=== PATIENT | male | born 1975 ===

== ENCOUNTER 2020-09-14 08:21 | Day surgery (SDC) | payer BC ==
[2020-09-12 13:20] VITALS: BMI 41.0
[~2020-09-14 08:21] MED LIST: LACTATED RINGERS 1,000 ML IV SCH; LIDOCAINE 1% (10MG/ML) FOR IV START INTRADERMA PRN
[2020-09-14 08:56] VITALS: TEMP 98
[2020-09-14] MEDS ORDERED: LIDOCAINE 1% INJ 10MG/ML (20 ML MDV) ONE (09:41)
[2020-09-14] MEDS ORDERED: PROPOFOL 10 MG/ML 20 ML VIAL IV ONE (09:41)
[2020-09-14 10:27] VITALS: PULSE 64
--- NOTE | 2020-09-14 10:28 | P.PCN ---
Date of Procedure: 09/14/20 Description of Procedure: Brief History: Patient is a 45-year-old male presenting for outpatient EGD and colonoscopy for evaluation of anorexia with hemorrhage of the anus and rectum. Patient has a history of diverticular disease. Still reporting left lower quadrant discomfort with occasional pain. He reports that appetite has been down over the past few weeks. Procedure performed: Esophagogastroduodenoscopy with biopsy Colonoscopy with polypectomy Estimated blood loss: Minimal. Preoperative diagnosis: Anorexia, hemorrhage of the anus and rectum, abdominal pain Anesthesia: MAC Procedure: After informed consent was obtained from the patient was brought into the endoscopy unit and IV sedation was administered by anesthesia under continuous monitoring. Initially upper endoscopy was done. The Olympus GF 190 video endoscope was inserted into the mouth and esophagus intubated without any difficulty and was gradually advanced into the stomach and duodenum and carefully examined. The bulb and second part of the duodenum appeared normal., With biopsies taken The scope was then withdrawn into the stomach adequately insufflated with air and upon careful examination the antrum and body, cardia and fundus appeared win, except for some mild scattered erythema in the antrum and body suggestive of mild gastritis with biopsies taken l. The scope was then withdrawn into the esophagus. The GE junction was located at 40 cm to the incisor, and biopsied s. It appeared regular with no erythema erosions or ulcerations. Rest of the esophagus appeared normal. Patient tolerated the procedure well. At this time the patient continued to remain sedation. Initial digital rectal examination was normal. Olympus CF 190 video colonoscope was then inserted into the rectum and gradually advanced to the cecum without any difficulty. Careful examination was performed as the scope was gradually being withdrawn. The prep was excellent. The cecum, ascending colon, transverse colon, descending colon, sigmoid colon and rectum appeared normal. Retroflexion was performed in the rectum and no lesions were noted, low-grade internal hemorrhoids seen. Multiple small mouth diverticula noted in the sigmoid colon. Diminutive polyps measuring 1-2 mm in size removed from the ileocecal valve, ascending colon, transverse colon, splenic flexure, sigmoid colon and rectum. Patient tolerated the procedure well. Impression: 1. Mild gastritis. Biopsies of the duodenum, antrum and body and GE junction. 2. Mild sigmoid diverticulosis. 6 diminutive polyps removed with cold forcep polypectomy from the ileocecal valve, ascending colon, transverse colon, splenic flexure, sigmoid colon and rectum. Low-grade internal hemorrhoids. Recommendations: Findings of this examination were discussed with the patient as well as his family. Okay to resume diet. Okay to resume medications. Await pathology from biopsies and polypectomy. Recommend repeat colonoscopy in 5 years for colon polyps pending pathology from polypectomies. Follow-up in the GI clinic as scheduled.
[2020-09-14 10:47] VITALS: BP 156/95; RESP 16
== END 2020-09-14 11:16 | disposition home or self-care (01) ==
LOC: ORWHC2ENDO 08:21
PROVIDERS: ATTEND Internal Medicine
DX: K29.50 Unspecified chronic gastritis without bleeding (principal); K20.90 Esophagitis, unspecified without bleeding; D12.2 Benign neoplasm of ascending colon; D12.3 Benign neoplasm of transverse colon; D12.5 Benign neoplasm of sigmoid colon; K64.8 Other hemorrhoids; K57.30 Diverticulosis of large intestine without perforation or abscess without bleeding; K62.5 Hemorrhage of anus and rectum; R63.0 Anorexia; F17.210 Nicotine dependence, cigarettes, uncomplicated; Z88.2 Allergy status to sulfonamides
CPT/HCPCS: 88305; 45380; 43239; J2001; J2704